=== PATIENT | female | born 1955 | race Caucasian/White ===

== ENCOUNTER 2016-07-21 15:16 | Emergency (ER) | payer MEDICARE, OTHER ==
[~2016-07-21] VITALS: Ht 172.7 cm; Wt 90.9 kg
[~2016-07-21 15:16] MED LIST: ASPI-973 PO; LEVO750T9 PO; LORA-303 PO; LORA1TAB PO; MECL-114 PO; OXYC-474 PO
[2016-07-21 15:24] VITALS: BP 169/96; PULSE 70; RESP 12; O2SAT 98
[2016-07-21] MEDS ORDERED: 0.9% Sodium Chloride 1,000 ML IV ONE (17:03)
--- NOTE | 2016-07-21 17:26 | ED.REPORT ---
HPI-General Illness Date of Service Jul 21, 2016 ED Provider: Sean Kramer MD The patient is an 60 year old female with a history of sleep apnea, peripheral vertigo, remote stroke and sciatica presents to the ED complaining of sinus discomfort that began 4 days ago. Patient reports sinus pressure that she describes as "humming". Associated symptoms include nasal congestion, intermittent positional vertigo, worsening anxiety and insomnia due to the symptoms. The vertigo has been occurring intermittently for the past few months. Patient recently saw her PCP who prescribed her decongestants which provided little relief. She states that she wakes up every 10 minutes "gasping" for breath. Previous sleep study revealed sleep apnea. She states that she never picked up her CPAP machine. She denies any acute weakness, numbness, tingling or headaches. No persistent vertigo. No ear pain or hearing loss. Her history is quite vague, tangential. She initially complained of vertigo to nurse her chief complaint upon my assessment seems to be initially sinus pressure and irritation though later changes to out obtaining MRI tomorrow and concerned that she has not been sleeping well. Nursing Notes Stated Complaint: VERTIGO,HIGH BP Chief Complaint: General Complaint Nursing Notes Reviewed: Yes Allergies: Coded Allergies: erythromycin base (Verified Adverse Reaction, Unknown, VOMITING, 11/17/15) Scheduled Aspirin (Aspirin) 81 Mg Tablet 81 MG PO DAILY Levofloxacin (Levaquin) 750 Mg Tablet 750 MG PO DAILY Scheduled PRN Lorazepam (Ativan) 1 Mg Tablet 0.5 MG PO TID PRN PRN For Dizziness Lorazepam (Lorazepam) 1 Mg Tablet 1 MG PO BID PRN PRN For Anxiety Lorazepam (Ativan) 0.5 Mg Tablet 0.5 MG PO HS PRN PRN For Insomnia Meclizine (Bonine) 25 Mg Tab.chew 25 MG PO TID PRN PRN For Dizziness Oxycodone (Roxicodone) 5 Mg Tablet 10 MG PO Q4H PRN PRN For Pain General Time Seen by MD: 17:02 Chief Complaint Other (Sinus Discomfort) Hx Obtained From: Patient Arrived By: Walk-in Sudden in Onset?: No Onset Occurred: 4 days ago Symptom Duration: Since onset Pertinent Negative: Pt denies other symptoms Recent Healthcare: No recent doctor visit, No recent hospitalization Past Medical History Past Medical History Pneumonia Chronic back pain - on opiates Vertigo Stroke on MRI in 2006 Sciatica Past Surgical History Fatty tumor on thyroid removed many years ago Tubal ligation Shoulder surgery Abdominal hysterectomy with unilateral oophorectomy Family History Father had history of prostate cancer. He in his 80s secondary to a fall. Mother of complications of a fall as well. Mother had CHF. Smoking History Former Smoker Social History Alcohol Use: Denies alcohol use Drug Use: Denies drug use Other Social History: Good social support Ambulatory Status Independent Review of Systems Sinus pressure Full Review of Systems Constitutional: Denies: Chills, Fever Ears / Nose / Throat: Reports: Nasal congestion, Sinus problem Respiratory: Denies: Shortness of breath Cardiovascular: Denies: Chest pain GI: Denies: Abdominal pain, Nausea, Vomiting Neurologic: Denies: Change LOC Psychiatric: Reports: Insomnia Complete sys rev & neg: except as marked. Physical Exam Vital Signs Vital Signs Date Time Temp Pulse Resp B/P Pulse Ox O2 Delivery O2 Flow Rate FiO2 07/21/16 19:14 37.0 67 16 145/82 98 Room Air 07/21/16 15:24 36.8 70 12 169/96 98 Room Air Initial VS: Reviewed Neck: Supple, Non-tender, Full range of motion Extremities: Vascular intact, Neuro intact, No swelling, No tenderness Skin: Warm, Dry, No cyanosis Psychiatric: Mood/affect normal, Behavior normal, Normal thought content General/Constitutional: Awake, Alert Head / Eyes: Atraumatic, Normocephalic, PERRL, EOMI, No nystagmus ENT: Atraumatic, Airway patent, Mucous membranes moist, Pharynx NL, Tympanic membs NL, Ext aud canal NL ENT: No purulent nasal drainage Tenderness over maxillary sinus to percussion Respiratory / Chest: Atraumatic, Breath sounds NL, Breath sounds = bilat, No respiratory distress Cardiovascular: Heart rate NL, Regular rhythm, Heart sounds NL, No gallop, No murmurs, No rubs Abdomen: Atraumatic, Soft, Non-tender, No distention Neurologic: Oriented X3, Speech NL (Linear, clear fluid speech ), No motor deficits, No sensory deficits, CN II - XII intact NEURO: Pronator drift dificult 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 - scheduled for an MRI 07/22) Normal bilateral upper extremities Interpretation & Diagnostics Lab Results Interpretation Result Diagram: 07/21/16 1809 07/21/16 180 Test 07/21/16 18:09 White Blood Count 7.3th/mm3 (3.8-10.1) Red Blood Count 4.43mil/mm3 (3.90-5.20) Hemoglobin 13.6g/dL (12.0-15.6) Hematocrit 40.5% (35.0-46.0) Mean Corpuscular Volume 91.4fL (81-100) Mean Corpuscular Hemoglobin 30.7pg (27.0-35.0) Mean Corpuscular Hemoglobin Concent 33.6% (32.0-37.0) Red Cell Distribution Width 12.8% (12.3-15.4) Platelet Count 282bil/L (150-400) Neutrophils (%) (Auto) 59.6% (40-74) Lymphocytes (%) (Auto) 31.1% (14-46) Monocytes (%) (Auto) 5.6% (4-12) Eosinophils (%) (Auto) 2.9% (0-5) Basophils (%) (Auto) 0.4% (0-3) Prothrombin Time 10.3sec (8.1-12.5) Prothromb Time International Ratio 0.96ratio Sodium Level 141mEq/L (134-144) Potassium Level 3.8mEq/L (3.5-5.2) Chloride Level 103mEq/L (97-108) Carbon Dioxide Level 23mmol/L (18-29) Blood Urea Nitrogen 8mg/dL (6-24) Creatinine 0.65mg/dL (0.57-1.00) Estimat Glomerular Filtration Rate 134mL/min (>59) Glucose Level 95mg/dL (60-99) Calcium Level 9.0mg/dL (8.5-10.1) Magnesium Level 2.0mg/dL (1.6-2.6) Total Bilirubin 0.6mg/dL (0.0-1.2) Aspartate Amino Transf (AST/SGOT) 20U/L (0-50) Alanine Aminotransferase (ALT/SGPT) 27U/L (0-32) Alkaline Phosphatase 67U/L (25-165) Troponin T < 0.010ug/L (0.0-0.011) Pro-B-Type Natriuretic Peptide 233.3pg/mL (0-287) Total Protein 7.1g/dL (6.4-8.4) Albumin 4.3g/dL (3.4-5.0) Hold Leblanc Top Tube Received (Received) ECG Interpretation ECG Interpretation: Sinus Rhythm Rate 60 bpm Left axis deviation no acute St t wave Time: 20:11 Interpreted by: ED physician Normal ECG Interpretation: No change from prior ECGs (prior 11/17/15) X-Ray Chest Interpretation Chest Xray Interpretation: IMPRESSION: 1. No definite acute cardiopulmonary disease. Dictated by: Ivan Velasquez M.D. on 07/21/2016 at 17:36 Interpretation / Wet Read by: Interpret - Radiologist CT Head Interpretation IMPRESSION: 1. No acute intracranial abnormality. Dictated by: Ivan Velasquez M.D. on 07/21/2016 at 17:39 Study: Head CT no contrast Interpretation / Wet Read by: Interpret - Radiologist Re-Eval/Medical Decision Med Decision/Clinical Course The patient is an 60 year old female with a history of sleep apnea, peripheral vertigo, remote stroke and sciatica presents to the ED complaining of sinus discomfort that began 4 days ago. Patient reports sinus pressure that she describes as "humming". Associated symptoms include nasal congestion, intermittent positional vertigo, worsening anxiety and insomnia due to the symptoms. The vertigo has been occurring intermittently for the past few months. Patient recently saw her PCP who prescribed her decongestants which provided little relief. She states that she wakes up every 10 minutes "gasping" for breath. Previous sleep study revealed sleep apnea. She states that she never picked up her CPAP machine. She denies any acute weakness, numbness, tingling or headaches. No persistent vertigo. No ear pain or hearing loss. Her history is quite vague, tangential. She initially complained of vertigo to nurse her chief complaint upon my assessment seems to be initially sinus pressure and irritation though later changes to out obtaining MRI tomorrow and concerned that she has not been sleeping well. Here in the emergency department the patient is afebrile with stable vital signs and examination as above. Of note she has no acute findings on her neurologic assessment today. Laboratory studies notable as below: CBC and CMP unremarkable Negative troponin BNP within normal limits Coag normal Head CT unremarkable CXR: Obtained, reviewed and interpreted by myself shows no evidence of acute infiltrates, effusions or pneumothorax. Cardiac and mediastinal silhouette normal. No bony or soft tissue abnormalities. I continue to have quite a bit of trouble teasing out the patient's chief complaint today. In regards to her sinus pressure I suspect that she is creating some degree of sinusitis, whether this is primarily allergic versus viral is unclear to me. I see no evidence that this is bacterial in nature and she has no leukocytosis, no fever and no purulent nasal discharge. I do not feel that antibiotics are indicated. Vertiginous symptoms are intermittent and going on for quite a while without any other acute neurologic findings. I see no indication that she is expressing peripheral vertigo. Head CT obtained from triage is unremarkable. She has had no head trauma and I do not feel that further imaging studies are indicated. She reports chronic cervical spine degenerative issues and is already seeing a spine surgeon at [facility] and is scheduled for an MRI tomorrow. She is very anxious about this MRI and is requesting something to help her calm down prior to obtaining the MRI. I prescribed Ativan 0.5 mg and advised her that she will require someone to drive her to and from the study. There are no findings just a viral meningitis or encephalitis. At this time, I feel that she is appropriate for discharge home. Follow-up and return precautions were reviewed in detail and she was discharged in stable condition. Of note, I recommended that she take Sudafed prior to bedtime if this may help with sinusitis symptoms and sleep. I have not recommended Sudafed and she is having trouble sleeping. Time of Eval: 20:00 Patient Status: Condition improved Re-Evaluation/Progress Note: Patient is rechecked. She is informed of her X-ray results, CT results, lab results, EKG and diagnosis. All of the patient's questions are adressed. She understands and agrees with the treatment plan to discharge. Counseled Regarding: Diagnosis, Lab results, Need for follow-up, When/why to return to ED Discharge & Departure Primary Impression: Anxiety Additional Impressions: Sinusitis Sinusitis location: maxillary Chronicity: unspecified Qualified Code: J32.0 - Chronic maxillary sinusitis Benign paroxysmal positional vertigo Laterality: unspecified laterality Qualified Code: H81.10 - Benign paroxysmal vertigo, unspecified ear Disposition: Home Discharge Condition All VS Reviewed: Yes Condition: Improved Patient Instructions: Sinusitis (ED) Additional Instructions: Thank you for seeking care at the emergency room. It is difficult for us to make definitive diagnoses in the ED but we believe that your symptoms are likely due to sinusitis. Our primary goal today in the ED was to evaluate you for any life-threatening conditions. Your evaluation was reassuring. Please take medication as prescribed. Keep the follow-up appointment with your neurologist. I recommend you fill the prescription for the CPAP machine. You should return to the ED immediately if you develop any lightheadedness, weakness or any other concerning signs or symptoms. Thank you for letting us partake in your care today. Referrals: Manuel Sloan MD (PCP) Scribe Attestation Portions of this note were transcribed by Saeid Olivarez. I, Dr. Kramer personally performed the history, physical exam and medical decision-making; I reviewed and confirmed the accuracy of the information in the transcribed note. Signed by: Omero Garcia, 07/21/[id number]. copies to: Manuel Sloan MD, Beck O MD Jul 21, 2016 17:26 SAEID OLIVAREZ Jul 21, 2016 19:59
--- NOTE | 2016-07-21 17:43 | DRSVH ---
PROCEDURE: X-RAY CHEST ONE VIEW, PORTABLE ([id number]) INDICATIONS: sob TECHNIQUE: One view of the chest was acquired. COMPARISON: [facility], , CHEST 1VW (PORTABLE), 08/09/2011, 14:57. FINDINGS: Surgical changes and devices: None. Lungs and pleura: No pleural effusions or pneumothorax. Lungs are clear. Mediastinum: Mediastinal contours appear normal. Heart size is borderline enlarged. Bones and chest wall: No suspicious bony lesions. Overlying soft tissues appear unremarkable. IMPRESSION: 1. No definite acute cardiopulmonary disease. Dictated by: Ivan Velasquez M.D. on 07/21/2016 at 17:36 Approved by: Ivan Velasquez M.D. on 07/21/2016 at 17:37
--- NOTE | 2016-07-21 17:47 | DRSVH ---
PROCEDURE: CT BRAIN WITHOUT CONTRAST ([id number]) INDICATIONS: HAGER, Vertigo TECHNIQUE: Noncontrast 4.5 mm thick angled axial sections acquired from the foramen magnum to the vertex, with c oronal reformats. COMPARISON: [facility], CT, CT BRAIN WO CON, 11/17/2015, 19:25. FINDINGS: Image quality: Excellent. CSF spaces: Basal cisterns are patent. No extra-axial fluid collections. Ventricles are normal in size and shape. Brain: No intracranial hemorrhage, mass, or mass effect. Mcfarland-white matter interface is preserved. Skull and face: Calvarium and visualized facial bones are intact, without suspicious lesions. Sinuses: Visualized sinuses and mastoids are clear. IMPRESSION: 1. No acute intracranial abnormality. Dictated by: Ivan Velasquez M.D. on 07/21/2016 at 17:39 Approved by: Ivan Velasquez M.D. on 07/21/2016 at 17:41
[2016-07-21 18:12] LABS: BASOPHILS % (AUTO) 0.4 % (0-3); EOSINOPHILS % (AUTO) 2.9 % (0-5); MONOCYTES % (AUTO) 5.6 % (4-12); Mean Corpuscular Hemoglobin 30.7 pg (27.0-35.0); Mean Corpuscular Volume 91.4 fL (81-100); NEUTROPHILS % (AUTO) 59.6 % (40-74); Platelet Count 282 bil/L (150-400)
[2016-07-21 18:31] LABS: INR 0.96 ratio
[2016-07-21 18:55] LABS: TROPONIN T < 0.010 ug/L (0.0-0.011)
[2016-07-21 19:14] VITALS: BP 145/82; PULSE 67; RESP 16; O2SAT 98
[2016-07-21] MEDS ORDERED: LORA-302 PO (20:14)
== END 2016-07-21 20:16 | disposition home or self-care (01) ==
LOC: SED 15:16
DX: J32.0 Chronic maxillary sinusitis (principal); F41.9 Anxiety disorder, unspecified; H81.10 Benign paroxysmal vertigo, unspecified ear; G47.00 Insomnia, unspecified; M54.9 Dorsalgia, unspecified; G89.29 Other chronic pain; Z86.73 Personal history of transient ischemic attack (TIA), and cerebral infarction without residual deficits; Z87.01 Personal history of pneumonia (recurrent); Z79.82 Long term (current) use of aspirin; Z87.891 Personal history of nicotine dependence; Z88.1 Allergy status to other antibiotic agents
CPT/HCPCS: 36415; 70450; 71010; 80053; 83735; 83880; 84484; 85025; 85610; 93005; 96360; 99285; G0463; J7030